=== PATIENT | female | born 1970 | race African-American/Black ===

== ENCOUNTER 2023-11-27 10:37 | Emergency (ER) | payer SELFPAY, OTHER | END 2023-11-27 12:24 | disposition home or self-care (01) | LOC: ERS 10:37 | DX: S16.1XXA Strain of muscle, fascia and tendon at neck level, initial encounter (principal); S39.012A Strain of muscle, fascia and tendon of lower back, initial encounter; I10 Essential (primary) hypertension; V43.62XA Car passenger injured in collision with other type car in traffic accident, initial encounter | CPT/HCPCS: 72125; 72131 ==